=== PATIENT | male | born 1965 | race Caucasian/White ===

== ENCOUNTER → 2018-01-15 | Outpatient (CLI) | payer OTHER ==
[~2018-01-15] VITALS: Ht 177.8 cm; Wt 127.9 kg
[~2018-01-15] MED LIST: ALEVE220 M2 PO; HYDROCHLOROTHIA25 MG PO; MULTIPLE VITAM1 EACH PO; TYLENOL ARTHRI650 MG PO; ZESTRIL40 MG PO
== END | disposition home or self-care (01) ==
LOC: AMB 11:56
PROC: 0DJD8ZZ Inspection of Lower Intestinal Tract, Via Natural or Artificial Opening Endoscopic (ICD-10-PCS; principal; 2018-01-15)
DX: Z12.11 Encounter for screening for malignant neoplasm of colon (principal); K57.30 Diverticulosis of large intestine without perforation or abscess without bleeding; E78.5 Hyperlipidemia, unspecified; I10 Essential (primary) hypertension; Z88.0 Allergy status to penicillin; Z87.891 Personal history of nicotine dependence; Z82.61 Family history of arthritis
CPT/HCPCS: 93005; J2250